=== PATIENT | male | born 1960 | race Caucasian/White ===

== ENCOUNTER → 2016-05-21 | Outpatient (CLI) | payer BC ==
[~2016-05-21] MED LIST: ACET65TA OR; COLA100C2 OR; FLEXERIL PO; HYDR4TAB OR; PRED10TA2 OR; PREG50CA OR; VIAGRA PO; VICO5TAB OR
--- NOTE | 2016-05-21 13:12 | REP ---
SCROTAL ULTRASOUND: 05/21/2016. Clinical history: Right-sided scrotal mass. Findings. No prior pertinent study. The right testis is 4.8 x 2.7 x 4.2 cm. The left 5.1 x 3 x 3.6 cm. Both testes are homogeneous in echotexture without focal mass, cyst or any definite calcification with shadowing. The epididymal head has a CC diameter of 14.8 mm on the right and 18.2 mm on the left. There is a right epididymal head cyst measuring 2.6 x 2.4 x 1.4 mm. There is another epididymal head cyst or spermatocele measuring 1.8 x 1.3 x 1.3 cm. Doppler tracing shows resistive index of 0.58 on the right testis of 0.52 on the left with normal color flow to both. No hydrocele or varicocele evident. No torsion. Impression: 1. There is a 1.8 x 1.3 cm epididymal head cyst or spermatocele in the right hemiscrotum above the testis with a smaller 2.4 x 2.8 mm epididymal head cyst as well. The left side unremarkable. No varicocele, hydrocele or focal abnormality within either testis. No torsion. Signed by Lenny Hidalgo MD 05/21/2016 08:11 P
== END ==
LOC: M RAD 11:45
PROVIDERS: ATTEND Physician Assistant
DX: N50.3 Cyst of epididymis (principal)

== ENCOUNTER → 2017-06-16 | Outpatient (CLI) | payer OTHER | LOC: M RAD 17:21 | DX: Z04.1 Encounter for examination and observation following transport accident (principal); V89.2XXA Person injured in unspecified motor-vehicle accident, traffic, initial encounter; Y92.410 Unspecified street and highway as the place of occurrence of the external cause; M47.812 Spondylosis without myelopathy or radiculopathy, cervical region | CPT/HCPCS: 70450 ==

== ENCOUNTER → 2018-04-26 | Outpatient (REF) | payer BC ==
[2018-04-26 12:07] LABS: BASO % 0.4 % (0.0-1.0); EOS # 0.1 10^3/uL (0.0-0.50); EOS % 1.6 % (0.0-3.0); HEMATOCRIT 41.7 % (42.0-52.0); HEMOGLOBIN 14.2 g/dl (13.5-17.5); LYMPH # 3.5 10^3/uL (1.5-4.5); LYMPH % 50.5 % (24.0-44.0); MEAN CORPUSCULAR HEMOGLOBIN 30.9 pg (27.0-33.0); MEAN CORPUSCULAR HGB CONC 34.1 g/dl (32.0-36.5); MEAN CORPUSCULAR VOLUME 90.7 fl (80.0-96.0); MONO # 0.6 10^3/uL (0.0-0.8); MONO % 8.3 % (0.0-5.0); NEUTROPHILS # 2.7 10^3/uL (1.8-7.7); NEUTROPHILS % 39.1 % (36.0-66.0); PLATELET COUNT, AUTOMATED 146 10^3/uL (150-450); WHITE BLOOD COUNT 6.9 10^3/uL (4.0-10.0)
[2018-04-26 12:33] LABS: ALT/SGPT 33 U/L (12-78); BILIRUBIN,TOTAL 0.6 MG/DL (0.2-1.0); BLOOD UREA NITROGEN 24 MG/DL (7-18); CALCIUM LEVEL 8.8 MG/DL (8.5-10.1); CARBON DIOXIDE LEVEL 26 MEQ/L (21-32); CHLORIDE LEVEL 108 MEQ/L (98-107); GLOMERULAR FILTRATION RATE > 60.0 (>56); GLUCOSE, FASTING 94 MG/DL (70-100); POTASSIUM SERUM 3.9 MEQ/L (3.5-5.1); SODIUM LEVEL 142 MEQ/L (136-145); TRIGLYCERIDES LEVEL 91 MG/DL (<150)
[2018-04-26 12:34] LABS: ALBUMIN 4.3 GM/DL (3.2-5.2); CHOLESTEROL LEVEL 223 MG/DL (<200); CHOLESTEROL RISK RATIO 2.973 (<5); HDL CHOLESTEROL 75 MG/DL (>40); LDL CHOLESTEROL 130 MG/DL (<100); NON-HDL-C 148 MG/DL; TOTAL PROTEIN 6.9 GM/DL (6.4-8.2)
== END ==
LOC: M SFHCCLAY 07:19
PROVIDERS: ATTEND Nurse Practitioner Family
DX: Z00.00 Encounter for general adult medical examination without abnormal findings (principal); Z13.220 Encounter for screening for lipoid disorders; R53.83 Other fatigue

== ENCOUNTER → 2018-04-28 | Outpatient (REF) | payer BC ==
[2018-04-28 15:04] LABS: THYROID STIMULATING HORMONE 1.26 uIU/ML (0.358-3.740)
== END ==
LOC: M SFHCPLAZ 10:54
PROVIDERS: ATTEND Nurse Practitioner Family
DX: Z12.5 Encounter for screening for malignant neoplasm of prostate (principal); E78.49 Other hyperlipidemia
CPT/HCPCS: 36415; 84443; G0103

== ENCOUNTER 2018-07-31 07:22 | Day surgery (SDC) | payer BC ==
[~2018-07-31] VITALS: Ht 193 cm; Wt 103.0 kg
[~2018-07-31 07:22] MED LIST changes: +LIDOCAINE 2% INJ 100 MG/5 ML SDV (FOR ANES.) As Ordered ONE; +NS 1,000 ML IV ONE; +PROPOFOL 200 MG/20 ML VIAL As Ordered ONE
[2018-07-31] MEDS ORDERED: GLYCOPYRROLATE INJ 0.2 MG/ML 2 ML VIAL As Ordered ONE (08:40)
--- NOTE | 2018-07-31 08:54 | ROOR ---
Patient Name: Jah Kurtz Procedure Date: 07/31/2018 8:30 AM Date of : 1960 Age: 58 Room: [facility] Gender: Male Note Status: Finalized Procedure: Total Colonoscopy to Cecum + Cold Snare Polypectomy Indications: High risk colon cancer surveillance: Personal history of colonic polyps, Last colonoscopy: 2011 Providers: Wilner Morgan MD Referring MD: Belkis Baker NP Requesting Provider: Medicines: Monitored Anesthesia Care Complications: No immediate complications. Procedure: Pre-Anesthesia Assessment: - The heart rate, respiratory rate, oxygen saturations, blood pressure, adequacy of pulmonary ventilation, and response to care were monitored throughout the procedure. The Colonoscope was introduced through the anus and advanced to the cecum, identified by appendiceal orifice and ileocecal valve. The colonoscopy was performed without difficulty. The patient tolerated the procedure well. The quality of the bowel preparation was good. Findings: The perianal and digital rectal examinations were normal. Non-bleeding internal hemorrhoids were found during retroflexion. The hemorrhoids were small and Grade I (internal hemorrhoids that do not prolapse). A small polyp was found in the hepatic flexure. The polyp was sessile. The polyp was removed with a cold snare. Resection and retrieval were complete. The exam was otherwise without abnormality on direct and retroflexion views. Impression: - Non-bleeding internal hemorrhoids. - One small polyp at the hepatic flexure, removed with a cold snare. Resected and retrieved. - The examination was otherwise normal on direct and retroflexion views. - The exam was otherwise normal to the cecum. Recommendation: - Patient has a contact number available for emergencies. The signs and symptoms of potential delayed complications were discussed with the patient. Return to normal activities tomorrow. Written discharge instructions were provided to the patient. - High fiber diet. - Discharge patient to home. - Continue present medications. - Await pathology results. - Telephone GI clinic for pathology results in 1 week. - Repeat colonoscopy in 5 years for surveillance based on pathology results. - Return to referring physician. - The findings and recommendations were discussed with the patient's family. Wilner Morgan MD Wilner Morgan MD 07/31/2018 8:54:21 AM Electronically signed by Wilner Morgan MD Number of Addenda: 0 Note Initiated On: 07/31/2018 8:30 AM Estimated Blood Loss: Estimated blood loss: none.
[2018-07-31 09:14] VITALS: BP 117/88
[2018-07-31] MEDS ORDERED: PROPOFOL 500 MG/50 ML VIAL As Ordered ONE (09:53)
[2018-07-31] MEDS ORDERED: LIDOCAINE 2% INJ 100 MG/5 ML SDV (FOR ANES.) As Ordered ONE (09:53)
== END 2018-07-31 09:19 | disposition home or self-care (01) ==
LOC: M OPP 07:22
PROVIDERS: ATTEND Internal Medicine Gastroenterology
DX: Z12.11 Encounter for screening for malignant neoplasm of colon (principal); Z83.71 Family history of colonic polyps; K64.0 First degree hemorrhoids; D12.3 Benign neoplasm of transverse colon